=== PATIENT | male | born 1995 | race Caucasian/White ===

== ENCOUNTER 2019-08-16 16:24 | Emergency (ER) | payer OTHER ==
--- NOTE | 2019-08-16 17:04 | EDM.PDOC ---
ED HPI GENERAL MEDICAL PROBLEM - General Chief Complaint: ENT Problem Stated Complaint: SORE THROAT Time Seen by Provider: 08/16/19 16:31 Source of Information: Reports: Patient History Limitations: Reports: No Limitations - History of Present Illness INITIAL COMMENTS - FREE TEXT/NARRATIVE: Presents reporting a 2 day history of objective fever, sore throat. No shortness of breath, ear fullness facial fullness, cough. Did not have a seasonal flu vaccine. Not smoke. Sore Throat Pain Score (Numeric/FACES): 6 - Related Data Allergies Allergy/AdvReac Type Severity Reaction Status Date / Time No Known Allergies Allergy Verified 08/16/19 16:43 Home Meds: Home Meds Cetirizine [ZyrTEC] 1 tab PO DAILY 12/12/14 [History] Benzonatate [Tessalon Perle] 1 cap PO Q8HR PRN #20 capsule 08/16/19 [Rx] Codeine Phosphate/Guaifenesin [Guaifen-Codeine 100-10 mg/5 ml] 10 ml PO Q6HR PRN #240 liquid 08/16/19 [Rx] Diclofenac Sodium [Voltaren] 75 mg PO BIDMEALS #20 tab.ec 08/16/19 [Rx] Past Medical History - Past Health History Medical/Surgical History: Denies Medical/Surgical History Social & Family History - Family History Family Medical History: Noncontributory - Tobacco Use Smoking Status *Q: Never Smoker Second Hand Smoke Exposure: No - Caffeine Use Caffeine Use: Reports: None - Recreational Drug Use Recreational Drug Use: No ED ROS ENT - Review of Systems Review Of Systems: Comprehensive ROS is negative, except as noted in HPI. ED EXAM, ENT - Physical Exam Exam: See Below Exam Limited By: No Limitations General Appearance: Alert, No Apparent Distress Ears: Normal External Exam, Normal TMs Nose: Normal Inspection Mouth/Throat: Pharyngeal Erythema. No: Tonsillar Exudates, Tonsillar Swelling Head: Atraumatic, Normocephalic Neck: Normal Inspection Respiratory/Chest: No Respiratory Distress Cardiovascular: Normal Peripheral Pulses GI/Abdominal: Normal Bowel Sounds Neurological: Alert, Oriented Psychiatric: Normal Affect, Normal Mood Skin: Warm, Dry, Intact, Normal Color Lymphatic: No Adenopathy Course - Vital Signs Last Recorded V/S: Last Vital Signs Temp 36.6 C 08/16/19 16:43 Pulse 98 08/16/19 16:43 Resp 18 08/16/19 16:43 BP 149/71 H 08/16/19 16:43 Pulse Ox 98 08/16/19 16:43 - Orders/Labs/Meds Orders: Active Orders 24 hr Category Date Time Status INFLUENZA A+B AG SCREEN [] Stat Lab 08/16/19 16:41 Ordered STREP SCRN A RAPID W CULT CONF [RM] Stat Lab 08/16/19 16:41 Ordered Departure - Departure Time of Disposition: 17:22 Disposition: Home, Self-Care 01 Condition: Good Clinical Impression: Bronchitis Sinusitis Qualifiers: Sinusitis location: other Chronicity: unspecified Qualified Code(s): J32.9 - Chronic sinusitis, unspecified - Discharge Information Referrals: Mariano Zhao MD [Primary Care Provider] - [facility] [Outside] [facility] [Outside] Additional Instructions: The following information is given to patients seen in the emergency department who are being discharged to home. This information is to outline your options for follow-up care. We provide all patients seen in our emergency department with a follow-up referral. The need for follow-up, as well as the timing and circumstances, are variable depending upon the specifics of your emergency department visit. If you don't have a primary care physician on staff, we will provide you with a referral. We always advise you to contact your personal physician following an emergency department visit to inform them of the circumstance of the visit and for follow-up with them and/or the need for any referrals to a consulting specialist. The emergency department will also refer you to a specialist when appropriate. This referral assures that you have the opportunity for follow-up care with a specialist. All of these measure are taken in an effort to provide you with optimal care, which includes your follow-up. Under all circumstances we always encourage you to contact your private physician who remains a resource for coordinating your care. When calling for follow-up care, please make the office aware that this follow-up is from your recent emergency room visit. If for any reason you are refused follow-up, please contact the [facility] Emergency Department at and asked to speak to the emergency department charge nurse. 1. Diclofenac 75 mg one twice daily for a couple of days and then as needed 2. Cough syrup every 6 hours as needed with driving precautions 3. Tessalon Perles 1-2 every 8 hours as needed for cough 4. Drink plenty of fluids and rest Sepsis Event Note - Evaluation Sepsis Screening Result: No Definite Risk - Focused Exam Vital Signs: Vital Signs Temp Pulse Resp BP Pulse Ox 08/16/19 16:43 36.6 C 98 18 149/71 H 98 Date Exam was Performed: 08/16/19 Time Exam was Performed: 16:53 - My Orders Last 24 Hours: My Active Orders 08/16/19 16:41 INFLUENZA A+B AG SCREEN [RM] Stat STREP SCRN A RAPID W CULT CONF [] Stat - Assessment/Plan Last 24 Hours: My Active Orders 08/16/19 16:41 INFLUENZA A+B AG SCREEN [RM] Stat STREP SCRN A RAPID W CULT CONF [] Stat
[2019-08-16 17:47] VITALS: BP 130/79; PULSE 88
== END 2019-08-16 17:45 | disposition home or self-care (01) ==
LOC: MW.ED 16:24
DX: J40 Bronchitis, not specified as acute or chronic (principal); J32.9 Chronic sinusitis, unspecified
CPT/HCPCS: 87081; 87804; 87880-QW; 99283